=== PATIENT | male | born 1950 | race Caucasian/White ===

== ENCOUNTER 2020-02-07 11:51 | Outpatient (NON) | payer OTHER, SELFPAY ==
[2020-02-08 14:53] LABS: SARS-CoV-2 RNA PCR Positive
== END 2020-02-07 11:52 ==
LOC: ANHCOVIDDT 11:53
PROVIDERS: PCP Family Medicine; Visit Provider Family Medicine
DX: U07.1 COVID-19 (principal)
CPT/HCPCS: 87635; C9803; U0003

== ENCOUNTER 2020-02-12 18:21 | Inpatient (IN) | payer OTHER, MEDICARE, SELFPAY ==
[2020-02-12] VITALS (8 sets, daily range): BP systolic 93–114; BP diastolic 41–55; PULSE 70–92; RESP 16–23; TEMP 36.7–37.2; O2SAT 23–95; BMI 27.7
--- NOTE | ~2020-02-12 | XR_ITS ---
EXAMINATION: XR chest 1V DATE: 02/12/2020 19:36 INDICATION: COVID. Shortness of breath and hypoxia. TECHNIQUE: Upright AP view of the chest was obtained. COMPARISON: Chest radiograph dated 01/27/2016 FINDINGS: Patchy airspace opacities in the bilateral mid to lower lung zones. No pleural effusion or pneumothor ax. Heart size is normal. Median sternotomy wires and mediastinal surgical clips are seen, likely fro m prior coronary artery bypass grafting. Dual lead pacemaker/AICD seen with leads projecting over the expected locations of the right atrium and right ventricle. IMPRESSION: 1. Patchy bilateral lung disease consistent with pneumonia and/or pulmonary edema. Reviewed, dictated and finalized at location . R MACHINE IMPRESSION: 1. Patchy bilateral lung disease consistent with pneumonia and/or pulmonary brooksemiliana narayan
--- NOTE | 2020-02-12 18:36 | ED.SOB ---
HPI - SOB/Dyspnea General Chief Complaint: Shortness of Breath/Dyspnea Stated Complaint: covid+, sob Time Seen by Provider: 02/12/20 18:36 History of Present Illness HPI Narrative: 69 yo male with h/o CABG presents to the ED for SOB. Positive COVID-19 test 5 days ago. Cough, headache, loss of appetite, and increasing SOB. RA saturation 88%. No fever, CP, leg swelling. Related Data Allergies Allergy/AdvReac Type Severity Reaction Status Date / Time No Known Allergies Allergy Unverified 01/30/18 09:25 Review of Systems Review of Systems: All systems reviewed & are unremarkable except as noted in HPI and below Constitutional: Constitutional: Denies fever(s) and Reports weakness Cardiovascular: Cardiovascular: Denies chest pain Respiratory: Respiratory: Reports cough and Reports dyspnea Gastrointestinal: Gastrointestinal: Denies abdominal pain and Denies vomiting Genitourinary: Genitourinary: Denies dysuria Neurologic: Denies confusion PMFSH Past Medical History Medical History (Updated 02/12/20 @ 21:11 by Helder Hogue MD) CAD (coronary artery disease) Surgical History Surgical History (Updated 02/12/20 @ 21:04 by Helder Hogue MD) Hx of CABG Social History Social History (Updated 02/12/20 @ 21:04 by Helder Hogue MD) Smoking status: Never smoker Exam Const: General: no acute distress, alert and ill appearing Nutritional Appearance: well nourished Orientation/consciousness: patient oriented x3 HENMT: Head: normal to inspection Chest: Chest palpation & inspection: normal inspection of the chest Resp: Effort & Inspection: normal respiratory effort Auscultation: rhonchi Cardio: Rate: regular rate Rhythm: regular rhythm GI: GI Palp: Yes Soft to palpation and No Tenderness to palpation present (GI) Skin: General skin exam: normal color Neuro: General: patient oriented x3 and moves all extremities Speech: normal speech Extrem: General: normal to inspection and no edema Course Vital Signs Vital signs: Vital Signs Temperature 36.7 C 02/12/20 18:25 Pulse Rate 73 02/12/20 18:25 Respiratory Rate 20 02/12/20 18:25 Blood Pressure 93/41 L 02/12/20 18:25 Pulse Oximetry 88 L 02/12/20 18:25 Temperature 36.7 C 02/12/20 18:25 Pulse Rate 85 02/12/20 20:13 Respiratory Rate 23 H 02/12/20 20:13 Blood Pressure 114/52 L 02/12/20 20:13 Pulse Oximetry 92 02/12/20 20:15 MDM - SOB/Dyspnea MDM Narrative Medical decision making narrative: New oxygen requirement. Diffuse infiltrates on x-ray. Positive COVID test. He will need t be admitted for respiratory failure. Medical Records Attestation: I reviewed the patient's medical records. Lab Data Attestation: I reviewed the patient's lab results. Result diagrams: 02/12/20 19:21 02/12/20 19:21 Labs: Lab Results 02/12/20 02/12/20 02/12/20 Range/Units 19:21 19:21 19:21 WBC 10.7 H (4.5-10.0) K/mm3 RBC 3.60 L (4.6-6.20) M/mm3 Hgb 11.6 L (14.0-18.0) g/dL Hct 32.7 L (42.0-52.0) % MCV 90.8 (80-100) fl MCH 32.2 (26-34) pg MCHC 35.5 (32-36) g/dl RDW 13.0 (11.5-14.5) % Plt Count 236 (150-375) k/mm3 MPV 10.2 (7.4-10.4) fl Immature Gran % (Auto) 0.7 H (0-0.5) % Neut % (Auto) 84.4 H (45.5-73.1) % Lymph % (Auto) 8.1 L (18.3-44.2) % Hinds % (Auto) 6.7 (2.6-8.5) % Eos % (Auto) 0.0 (0-4.4) % Baso % (Auto) 0.1 L (0.2-1.2) % Lymph # (Auto) 0.87 L (0.9-3.2) K/mm3 Hinds # (Auto) 0.7 H (0.1-0.6) K/mm3 Eos # (Auto) 0.0 (0-0.3) K/mm3 Baso # (Auto) 0.0 (0.0-0.1) K/mm3 Abs Immat Gran (auto) 0.08 H (0.00-0.031) K/mm3 Absolute Neuts (auto) 9.1 H (1.3-6.7) K/mm3 Absolute Nucleated RBC 0.0 (0.0-0.012) K/mm3 Nucleated RBC % 0.0 (0.0-0.2) % Sodium 130 L (137-145) mmol/L Potassium 3.4 (3.4-5.0) mmol/L Chloride 92 L (98-107) mmol/L Carbon Dioxide 26 (22-30)
--- NOTE | 2020-02-12 18:48 | ECG_ITS ---
Measurements Intervals Tensed Rate: 74 P: 55 NV: 202 QRS: 20 QRSD: 125 T: 15 QT: 414 QTc: 462 Interpretive Statements SINUS RHYTHM INTRAVENTRICULAR CONDUCTION DELAY DELAYED PRECORDIAL R/S TRANSITION NONSPECIFIC T-WAVE ABNORMALITY- ANT/INF LEADS BASELINE ARTIFACT- I, II, III, AVR, AVL, AVF BORDERLINE ECG Electronically Signed On 02-13-2020 15:38:58 DELIVERY SALES WORK[employer] by Jd Chaudhary D.O.
[2020-02-12] MEDS: ALBUTEROL SULFATE (*SP) AEROSOL 1 PUFF 6 PUFF INHALATION (19:05)
--- NOTE | 2020-02-12 19:05 | PC.NURSE ---
REPORT TO IRIS BENÍTEZ AT THIS TIME SHE HAS ASSUMED PT CARE.
[2020-02-12 19:29] LABS: Basophils Percent Auto 0.1 % (0.2-1.2); Hematocrit 32.7 % (42.0-52.0); Hemoglobin 11.6 g/dL (14.0-18.0); Immature Granulocyte Absolute 0.08 K/mm3 (0.00-0.031); Immature Granulocyte Percent A 0.7 % (0-0.5); Lymphocytes Absolute Auto 0.87 K/mm3 (0.9-3.2); Lymphocytes Percent Auto 8.1 % (18.3-44.2); Mean Corpuscular HGB Conc 35.5 g/dl (32-36); Mean Corpuscular Hemoglobin 32.2 pg (26-34); Mean Corpuscular Volume 90.8 fl (80-100); Mean Platelet Volume 10.2 fl (7.4-10.4); Monocytes Absolute Auto 0.7 K/mm3 (0.1-0.6); Monocytes Percent Auto 6.7 % (2.6-8.5); Neutrophils Absolute Auto 9.1 K/mm3 (1.3-6.7); Neutrophils Percent Auto 84.4 % (45.5-73.1); Platelet Count Result 236 k/mm3 (150-375); White Blood Count 10.7 K/mm3 (4.5-10.0)
[2020-02-12 19:41] LABS: Anion Gap 12 mmol/L (8-16); Blood Urea Nitrogen 38 mg/dL (9-20); Calcium 8.4 mg/dL (8.4-10.2); Carbon Dioxide 26 mmol/L (22-30); Chloride 92 mmol/L (98-107); Estimated CRCL calculation 38 ml/min; Estimated Glomerular Filt Rate 38; Glucose 140 mg/dL (75-110); Potassium 3.4 mmol/L (3.4-5.0); Sodium 130 mmol/L (137-145)
[2020-02-12 20:42] LABS: Alanine Aminotransferase 52 U/L (4-50); Albumin Level 3.5 g/dL (3.5-5.1); Alkaline Phosphatase 159 U/L (38-126); Aspartate Amino Transferase 61 U/L (17-59); Bilirubin,Total 0.8 mg/dL (0.2-1.3)
--- NOTE | 2020-02-12 22:21 | PC.NURSE ---
Update patients on admission status.
--- NOTE | 2020-02-12 23:05 | PC.NURSE ---
This patient, Warren Don, was admitted to 3 [facility] Surg Room 331-02. Patient/family oriented to hospital policies and general routines including ID bracelet, bed and alarms, visiting hours, pain management, procedures, bathroom and other care routines, personal items, smoking policy, room service/diet, and visiting hours. Information on how to activate the Rapid Response Team has been discussed. Patient/Family are encouraged to report perceived risks to care and to ask questions if they do not understand what they are told or what they should do.
[2020-02-13] VITALS (10 sets, daily range): BP systolic 99–114; BP diastolic 51–61; PULSE 70–94; RESP 16–18; TEMP 35.8–36.4; O2SAT 91–99
[2020-02-13] MEDS: LACTATED RINGERS 1,000 ML 75 ML IV CONT (00:15)
[2020-02-13 06:54] LABS: Hematocrit 31.8 % (42.0-52.0); Hemoglobin 11.2 g/dL (14.0-18.0); Immature Granulocyte Absolute 0.04 K/mm3 (0.00-0.031); Immature Granulocyte Percent A 0.7 % (0-0.5); Lymphocytes Absolute Auto 0.24 K/mm3 (0.9-3.2); Mean Corpuscular HGB Conc 35.2 g/dl (32-36); Mean Corpuscular Hemoglobin 32.1 pg (26-34); Mean Corpuscular Volume 91.1 fl (80-100); Mean Platelet Volume 9.9 fl (7.4-10.4); Monocytes Absolute Auto 0.3 K/mm3 (0.1-0.6); Monocytes Percent Auto 4.7 % (2.6-8.5); Neutrophils Absolute Auto 5.4 K/mm3 (1.3-6.7); Neutrophils Percent Auto 90.6 % (45.5-73.1); Platelet Count Result 219 k/mm3 (150-375); Red Blood Count 3.49 M/mm3 (4.6-6.20)
[2020-02-13 07:22] LABS: Potassium 3.5 mmol/L (3.4-5.0)
[2020-02-13 07:44] LABS: Anion Gap 9 mmol/L (8-16); Blood Urea Nitrogen 38 mg/dL (9-20); Calcium 8.4 mg/dL (8.4-10.2); Carbon Dioxide 28 mmol/L (22-30); Chloride 93 mmol/L (98-107); Estimated CRCL calculation 41 ml/min; Estimated Glomerular Filt Rate 40; Glucose 184 mg/dL (75-110); Sodium 130 mmol/L (137-145)
[2020-02-13] MEDS: ASPIRIN 81 MG CHEWABLE TABLET PO (09:18)
[2020-02-13] MEDS: AMIODARONE HCL 200 MG TABLET BY MOUTH (09:19)
[2020-02-13] MEDS: METOPROLOL TARTRATE 25 MG TABLET PO ×2 (09:20→21:07)
[2020-02-13] MEDS: guaiFENesin 12 HR 600 MG TABCR PO ×2 (09:20→21:07)
[2020-02-13] MEDS: DEXAMETHASONE SOD PHOS INJ 4 MG/ML VIAL 6 MG IV PUSH (09:20)
[2020-02-13] MEDS: LORATADINE 10 MG TABLET PO (09:20)
[2020-02-13] MEDS: ASCORBIC ACID 500 MG TABLET 1000 MG PO (09:20)
[2020-02-13] MEDS: APIXABAN 5 MG TABLET PO ×2 (09:23→17:19)
--- NOTE | 2020-02-13 09:36 | PM.IMHP ---
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 He states he was feeling ill on 02/05 and got tested and was found positive on 02/06. His initial symptoms were dizziness, feeling clammy , chills, general malaise, general weakness. He had SOB with exertion. He also notes an occasional cough with slight chest discomfort with his cough. Occasional non-bloody sputum production. He denies having any sick contacts at home or known COVID exposure. He denies loss of taste or smell. He has noted lack of appetite with poor PO intake. He has occasional nausea with eating and vomited nonbloody bilious emesis occasionally. Earlier this week, his PCP instructed him to purchase a pulse oximeter to check his O2 saturations; yesterday he was noting saturations in low 80s and was instructed to proceed to the ED for further evaluation. While in the ED, he was noted to be hypoxic on RA; he was placed on 2L O2 with adequate O2 saturations. CXR showed patchy bilateral lung disease consistent with pneumonia and/or pulmonary edema. He had mild Leukocytosis. He was started on Decadron while in the ED. No other complaints at the moment. Denies current subjective f/c/s, current dizziness, lightheadedness, cp/palpitations, current sob/cough, current n/v/d/c, abd pain, changes in BMs, dysuria, hematuria, cloudy urine, calf pain/swelling. Review of Systems Review of Systems: All systems reviewed & are unremarkable except as noted in HPI and below PMFSH Past Medical History Medical History (Updated 02/13/20 @ 10:08 by Vincent Davis PA-C) A-fib CAD (coronary artery disease) Chronic anticoagulation Hypercholesteremia Hypertension Myocardial infarction Surgical History Surgical History (Updated 02/13/20 @ 09:53 by Vincent Davis PA-C) History of appendectomy History of back surgery lumbar disc repair History of tonsillectomy Hx of CABG Family History Family History (Updated 02/12/20 @ 23:31 by Althea López RN) Father Heart disease Social History Social History (Updated 02/13/20 @ 09:59 by Vincent Davis PA-C) Social History: Patient states he lives at home with his , Nadege, and his mother in law. He is a former 30 pack-year smoker quitting several years ago. His PCP is Dr. Ware. He wishes to be a Full Code. He lists his as his surrogate MDM Smoking status: Former smoker Alcohol intake: never Drinks per week: 2 Substance use: never Gender identity (if verbalized by the patient): Male Spiritual care concerns: No Meds Home Medications and Allergies Home Medications Medication Instructions Recorded Confirmed Type Allergy Relief (loratadine) 10 mg PO DAILY 02/12/20 02/12/20 History amiodarone 200 mg PO DAILY 02/12/20 02/12/20 History apixaban [Eliquis] 5 mg PO BID 02/12/20 02/12/20 History ascorbic acid (vitamin C) 1,000 mg PO DAILY 02/12/20 02/12/20 History aspirin 81 mg PO DAILY 02/12/20 02/12/20 History atorvastatin 80 mg PO DAILY 02/12/20 02/12/20 History hydrochlorothiazide 25 mg PO DAILY 02/12/20 02/12/20 History losartan 100 mg PO DAILY 02/12/20 02/12/20 History metoprolol tartrate 25 mg PO BID 02/12/20 02/12/20 History Allergies Allergy/AdvReac Type Severity Reaction Status Date / Time No Known Allergies Allergy Unverified 02/12/20 23:25 Vital Signs Vital Signs - 24 hr 02/12/20 18:25 02/12/20 19:22 02/12/20 19:
[2020-02-13] MEDS: ALBUTEROL SULFATE (*SP) AEROSOL 1 PUFF 2 PUFF INHALATION ×3 (10:17→21:29)
[2020-02-13] MEDS: REMDESIVIR 200 MG/NS 250 ML 200 MG/250 ML BAG 250 MG IVPB (11:31)
--- NOTE | 2020-02-13 17:50 | PCRCNOTE ---
Window of time for administration has passed. See next scheduled administration.
[2020-02-14] VITALS (15 sets, daily range): BP systolic 96–127; BP diastolic 46–76; PULSE 66–76; RESP 16–18; TEMP 36.1–36.4; O2SAT 92–98
[2020-02-14 06:52] LABS: Basophils Percent Auto 0.2 % (0.2-1.2); Hematocrit 30.8 % (42.0-52.0); Hemoglobin 10.9 g/dL (14.0-18.0); Immature Granulocyte Absolute 0.11 K/mm3 (0.00-0.031); Immature Granulocyte Percent A 0.9 % (0-0.5); Lymphocytes Absolute Auto 0.46 K/mm3 (0.9-3.2); Lymphocytes Percent Auto 3.8 % (18.3-44.2); Mean Corpuscular HGB Conc 35.4 g/dl (32-36); Mean Corpuscular Hemoglobin 31.6 pg (26-34); Mean Corpuscular Volume 89.3 fl (80-100); Mean Platelet Volume 9.9 fl (7.4-10.4); Monocytes Absolute Auto 0.9 K/mm3 (0.1-0.6); Monocytes Percent Auto 7.8 % (2.6-8.5); Neutrophils Absolute Auto 10.4 K/mm3 (1.3-6.7); Neutrophils Percent Auto 87.3 % (45.5-73.1); Platelet Count Result 267 k/mm3 (150-375); Red Blood Count 3.45 M/mm3 (4.6-6.20); Red Cell Distribution Width 12.8 % (11.5-14.5)
[2020-02-14 07:18] LABS: Alanine Aminotransferase 53 U/L (4-50); Albumin Level 3.1 g/dL (3.5-5.1); Alkaline Phosphatase 133 U/L (38-126); Anion Gap 6 mmol/L (8-16); Aspartate Amino Transferase 52 U/L (17-59); Bilirubin,Total 0.5 mg/dL (0.2-1.3); Blood Urea Nitrogen 38 mg/dL (9-20); Calcium 8.6 mg/dL (8.4-10.2); Carbon Dioxide 32 mmol/L (22-30); Chloride 96 mmol/L (98-107); Estimated CRCL calculation 53 ml/min; Estimated Glomerular Filt Rate 55; Glucose 148 mg/dL (75-110); Lactate Dehydrogenase 572 U/L (313-618); Magnesium 2.2 mg/dL (1.6-2.3); Potassium 3.8 mmol/L (3.4-5.0); Sodium 134 mmol/L (137-145)
[2020-02-14 07:32] LABS: CRP 20.3 mg/dL (<1.0)
[2020-02-14] MEDS: ALBUTEROL SULFATE (*SP) AEROSOL 1 PUFF 2 PUFF INHALATION ×4 (08:01→21:47)
[2020-02-14] MEDS: REMDESIVIR 100 MG/NS 250 ML 100 MG/250 ML BAG 250 MG IVPB (08:31)
[2020-02-14] MEDS: ASPIRIN 81 MG CHEWABLE TABLET PO (08:31)
[2020-02-14] MEDS: METOPROLOL TARTRATE 25 MG TABLET PO ×2 (08:32→20:13)
[2020-02-14] MEDS: ASCORBIC ACID 500 MG TABLET 1000 MG PO (08:32)
[2020-02-14] MEDS: APIXABAN 5 MG TABLET PO ×2 (08:32→17:18)
[2020-02-14] MEDS: guaiFENesin 12 HR 600 MG TABCR PO ×2 (08:32→20:13)
[2020-02-14] MEDS: DEXAMETHASONE SOD PHOS INJ 4 MG/ML VIAL 6 MG IV PUSH (08:32)
[2020-02-14] MEDS: LORATADINE 10 MG TABLET PO (08:32)
[2020-02-14] MEDS: AMIODARONE HCL 200 MG TABLET BY MOUTH (08:33)
--- NOTE | 2020-02-14 12:55 | P.PNIM_ITS ---
Progress Note: A&P Assessment and Plan (1) Acute respiratory failure with hypoxia: Code(s): J96.01 - Acute respiratory failure with hypoxia Status: Acute Assessment and Plan: Likely secondary to COVID pneumonia. Requiring 1 L O2 NC; improvement from yesterday * Supplemental O2; wean as tolerated * Continue supportive treatment for COVID; Tylenol, Mucinex, albuterol PRN * Continue Decadron and Remdesivir for COVID * Monitor (2) Pneumonia due to COVID-19 virus: Code(s): U07.1 - COVID-19; J12.89 - Other viral pneumonia Status: Acute Assessment and Plan: CXR shows evidence of pneumonia; likely secondary to COVID-19; tested positive on 02/06. Patient feels much better today; appears to have improved clinically. Mild leukocytosis today likely due to viral infection and daily steroids * Decadron initiated in ED on 02/11; continue (day 3) * Remdesivir initiated 02/12; continue (day 2/5) * Wean O2 as tolerated * Continue supportive care with Tylenol, mucinex, albuterol PRN; IS * Monitor respiratory status closely * Monitor labs (3) CAD (coronary artery disease): Code(s): I25.10 - Atherosclerotic heart disease of [place] coronary artery without angina pectoris Status: Inactive Assessment and Plan: No chest pain/palpitations. Follows Dr. Worthington and has appointment in 02/2020 * Continue home medications * Monitor (4) Hypertension: Code(s): I10 - Essential (primary) hypertension Status: Acute Assessment and Plan: BP a bit soft; most recent 111/58 * Continue home metoprolol * HCTZ and Losartan held for now; resume when BP improved (5) A-fib: Code(s): I48.91 - Unspecified atrial fibrillation Status: Acute Assessment and Plan: Patient on amiodarone and Eliquis, as well as metoprolol. Rate appears to be well controlled * Will continue amio, Eliquis and metoprolol for now * Monitor (6) Chronic anticoagulation: Code(s): Z79.01 - intermodal owner operator truck driver (current) use of anticoagulants Status: Acute Assessment and Plan: For A. fib, assumed stroke ppx. No signs of acute blood loss * Continue Eliquis (7) Hypercholesteremia: Code(s): E78.00 - Pure hypercholesterolemia, unspecified Status: Acute Assessment and Plan: * Will hold atorvastatin for now (8) Kidney failure: Code(s): N19 - Unspecified kidney failure Status: Acute Assessment and Plan: Labs obtained from PCP from 11/2019 show Cr of 1.45; assumed baseline. Cr today improved to 1.30; possible acute on chronic kidney injury secondary to poor PO intake prior to arrival. * Monitor kidney function daily * Will refrain from IV fluids as to not fluid overload; encouraged PO intake. 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 Patient states he feels a lot better today. Less SOB, able to walk to bathroom okay. Weaned to 1L O2 this morning. He has
--- NOTE | 2020-02-14 12:55 | PM.IMPN ---
Progress Note: A&P Assessment and Plan (1) Acute respiratory failure with hypoxia: Code(s): J96.01 - Acute respiratory failure with hypoxia Status: Acute Assessment and Plan: Likely secondary to COVID pneumonia. Requiring 1 L O2 NC; improvement from yesterday Supplemental O2; wean as tolerated Continue supportive treatment for COVID; Tylenol, Mucinex, albuterol PRN Continue Decadron and Remdesivir for COVID Monitor (2) Pneumonia due to COVID-19 virus: Code(s): U07.1 - COVID-19; J12.89 - Other viral pneumonia Status: Acute Assessment and Plan: CXR shows evidence of pneumonia; likely secondary to COVID-19; tested positive on 02/06. Patient feels much better today; appears to have improved clinically. Mild leukocytosis today likely due to viral infection and daily steroids Decadron initiated in ED on 02/11; continue (day 3) Remdesivir initiated 02/12; continue (day 2/5) Wean O2 as tolerated Continue supportive care with Tylenol, mucinex, albuterol PRN; IS Monitor respiratory status closely Monitor labs (3) CAD (coronary artery disease): Code(s): I25.10 - Atherosclerotic heart disease of [place] coronary artery without angina pectoris Status: Inactive Assessment and Plan: No chest pain/palpitations. Follows Dr. Worthington and has appointment in 02/2020 Continue home medications Monitor (4) Hypertension: Code(s): I10 - Essential (primary) hypertension Status: Acute Assessment and Plan: BP a bit soft; most recent 111/58 Continue home metoprolol HCTZ and Losartan held for now; resume when BP improved (5) A-fib: Code(s): I48.91 - Unspecified atrial fibrillation Status: Acute Assessment and Plan: Patient on amiodarone and Eliquis, as well as metoprolol. Rate appears to be well controlled Will continue amio, Eliquis and metoprolol for now Monitor (6) Chronic anticoagulation: Code(s): Z79.01 - laborer marine terminal (current) use of anticoagulants Status: Acute Assessment and Plan: For A. fib, assumed stroke ppx. No signs of acute blood loss Continue Eliquis (7) Hypercholesteremia: Code(s): E78.00 - Pure hypercholesterolemia, unspecified Status: Acute Assessment and Plan: Will hold atorvastatin for now (8) Kidney failure: Code(s): N19 - Unspecified kidney failure Status: Acute Assessment and Plan: Labs obtained from PCP from 11/2019 show Cr of 1.45; assumed baseline. Cr today improved to 1.30; possible acute on chronic kidney injury secondary to poor PO intake prior to arrival. Monitor kidney function daily Will refrain from IV fluids as to not fluid overload; encouraged PO intake. Consider resuming if not having adequate PO intake and having worsening renal function Subjective Date/time seen: 02/14/20 12:55 Interval history: Patient is a 69 yo M with history of past [place] s/p CABG, A. fib (on assisted a/c with Eliquis), hypertension, hypercholesterolemia, and questionable kidney disease who is seen in follow up for COVID pneumonia acute respiratory failure with hypoxia due to same. Patient states he feels a lot better today. Less SOB, able to walk to bathroom okay. Weaned to 1L O2 this morning. He has a dry cough, but this has improved. His weakness has significantly improved. No other complaints. Denies current f/c/s, myalgias/arthralgias, headaches, dizziness, lightheadedness, cp/palpitations, n/v/d/c, abd pain, changes in BMs, dysuria, hematuria, cloudy urine, calf pain/swelling. Review of Systems Review of Systems: All systems reviewed & are unremarkable except as noted in HPI and b
[2020-02-15] VITALS (9 sets, daily range): BP systolic 110–135; BP diastolic 55–68; PULSE 69–76; RESP 16–20; TEMP 36.3–36.7; O2SAT 92–95
[2020-02-15 06:46] LABS: Basophils Percent Auto 0.1 % (0.2-1.2); Hematocrit 29.2 % (42.0-52.0); Hemoglobin 10.3 g/dL (14.0-18.0); Immature Granulocyte Absolute 0.16 K/mm3 (0.00-0.031); Immature Granulocyte Percent A 1.5 % (0-0.5); Lymphocytes Absolute Auto 0.54 K/mm3 (0.9-3.2); Mean Corpuscular HGB Conc 35.3 g/dl (32-36); Mean Corpuscular Hemoglobin 31.8 pg (26-34); Mean Corpuscular Volume 90.1 fl (80-100); Mean Platelet Volume 9.9 fl (7.4-10.4); Monocytes Absolute Auto 1.1 K/mm3 (0.1-0.6); Monocytes Percent Auto 10.3 % (2.6-8.5); Neutrophils Absolute Auto 9.1 K/mm3 (1.3-6.7); Neutrophils Percent Auto 83.1 % (45.5-73.1); Platelet Count Result 271 k/mm3 (150-375); Red Blood Count 3.24 M/mm3 (4.6-6.20); White Blood Count 10.9 K/mm3 (4.5-10.0)
[2020-02-15 07:06] LABS: Alanine Aminotransferase 64 U/L (4-50); Albumin Level 2.9 g/dL (3.5-5.1); Alkaline Phosphatase 123 U/L (38-126); Anion Gap 8 mmol/L (8-16); Aspartate Amino Transferase 59 U/L (17-59); Bilirubin,Total 0.4 mg/dL (0.2-1.3); Blood Urea Nitrogen 36 mg/dL (9-20); Calcium 8.4 mg/dL (8.4-10.2); Carbon Dioxide 29 mmol/L (22-30); Chloride 98 mmol/L (98-107); Estimated CRCL calculation 62 ml/min; Estimated Glomerular Filt Rate > 60; Glucose 121 mg/dL (75-110); Potassium 3.7 mmol/L (3.4-5.0); Sodium 135 mmol/L (137-145)
[2020-02-15] MEDS: ASPIRIN 81 MG CHEWABLE TABLET PO (08:33)
[2020-02-15] MEDS: ASCORBIC ACID 500 MG TABLET 1000 MG PO (08:35)
[2020-02-15] MEDS: AMIODARONE HCL 200 MG TABLET BY MOUTH (08:35)
[2020-02-15] MEDS: APIXABAN 5 MG TABLET PO ×2 (08:35→16:08)
[2020-02-15] MEDS: LORATADINE 10 MG TABLET PO (08:36)
[2020-02-15] MEDS: METOPROLOL TARTRATE 25 MG TABLET PO ×2 (08:36→20:08)
[2020-02-15] MEDS: guaiFENesin 12 HR 600 MG TABCR PO ×2 (08:36→20:08)
[2020-02-15] MEDS: DEXAMETHASONE SOD PHOS INJ 4 MG/ML VIAL 6 MG IV PUSH (08:37)
[2020-02-15] MEDS: REMDESIVIR 100 MG/NS 250 ML 100 MG/250 ML BAG 250 MG IVPB (08:41)
[2020-02-15] MEDS: ALBUTEROL SULFATE (*SP) AEROSOL 1 PUFF 2 PUFF INHALATION ×3 (08:55→16:14)
--- NOTE | 2020-02-15 10:48 | P.PNIM_ITS ---
Progress Note: A&P Assessment and Plan (1) Acute respiratory failure with hypoxia: Code(s): J96.01 - Acute respiratory failure with hypoxia Status: Acute Assessment and Plan: Likely secondary to COVID pneumonia. Requiring 1 L O2 NC; stable * Supplemental O2; wean as tolerated * Continue supportive treatment for COVID; Tylenol, Mucinex, albuterol PRN * Continue Decadron and Remdesivir for COVID * Monitor (2) Pneumonia due to COVID-19 virus: Code(s): U07.1 - COVID-19; J12.89 - Other viral pneumonia Status: Acute Assessment and Plan: CXR shows evidence of pneumonia; likely secondary to COVID-19; tested positive on 02/06. Patient feels well today; appears to have improved clinically. Mild leukocytosis again today likely due to viral infection and daily steroids * Decadron initiated in ED on 02/11; continue (day 4) * Remdesivir initiated 02/12; continue (day 3/5) * Wean O2 as tolerated * Continue supportive care with Tylenol, mucinex, albuterol PRN; IS * Monitor respiratory status closely * Monitor labs (3) CAD (coronary artery disease): Code(s): I25.10 - Atherosclerotic heart disease of [place] coronary artery without angina pectoris Status: Inactive Assessment and Plan: No chest pain/palpitations. Follows Dr. Worthington and has appointment in 02/2020 * Continue home medications * Monitor (4) Hypertension: Code(s): I10 - Essential (primary) hypertension Status: Acute Assessment and Plan: BP a bit soft; most recent 110/55 * Continue home metoprolol * HCTZ and Losartan held for now; possibly resume losartan tomorrow if BP improved and kidney function stable (5) A-fib: Code(s): I48.91 - Unspecified atrial fibrillation Status: Acute Assessment and Plan: Patient on amiodarone and Eliquis, as well as metoprolol. 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 fib, assumed stroke ppx. No signs of acute blood loss * Continue Eliquis (7) Hypercholesteremia: Code(s): E78.00 - Pure hypercholesterolemia, unspecified Status: Acute Assessment and Plan: * Will hold atorvastatin for now (8) Kidney failure: Code(s): N19 - Unspecified kidney failure Status: Acute Assessment and Plan: Labs obtained from PCP from 11/2019 show Cr of 1.45; assumed baseline. Cr today improved to 1.10; possible acute kidney injury secondary to poor PO intake prior to arrival, although. * Monitor kidney function daily * Will refrain from IV fluids as to not fluid overload; encouraged PO intake. Consider resuming if not having adequate PO intake and having worsening renal function Subjective Date/time seen: 02/15/20 10:48 Interval history: Patient is a 69 yo M with history of past [place] s/p CABG, A. fib (on snf a/c with Eliquis), hypertension, hypercholesterolemia, and questionable kidney disease who is seen in follow up for COVID pneumonia acute respiratory failure with hypoxia due to same. Patient states he feels better again today. Less SOB, able to walk around the room easily. His
--- NOTE | 2020-02-15 10:48 | PM.IMPN ---
Progress Note: A&P Assessment and Plan (1) Acute respiratory failure with hypoxia: Code(s): J96.01 - Acute respiratory failure with hypoxia Status: Acute Assessment and Plan: Likely secondary to COVID pneumonia. Requiring 1 L O2 NC; stable Supplemental O2; wean as tolerated Continue supportive treatment for COVID; Tylenol, Mucinex, albuterol PRN Continue Decadron and Remdesivir for COVID Monitor (2) Pneumonia due to COVID-19 virus: Code(s): U07.1 - COVID-19; J12.89 - Other viral pneumonia Status: Acute Assessment and Plan: CXR shows evidence of pneumonia; likely secondary to COVID-19; tested positive on 02/06. Patient feels well today; appears to have improved clinically. Mild leukocytosis again today likely due to viral infection and daily steroids Decadron initiated in ED on 02/11; continue (day 4) Remdesivir initiated 02/12; continue (day 3/5) Wean O2 as tolerated Continue supportive care with Tylenol, mucinex, albuterol PRN; IS Monitor respiratory status closely Monitor labs (3) CAD (coronary artery disease): Code(s): I25.10 - Atherosclerotic heart disease of [place] coronary artery without angina pectoris Status: Inactive Assessment and Plan: No chest pain/palpitations. Follows Dr. Worthington and has appointment in 02/2020 Continue home medications Monitor (4) Hypertension: Code(s): I10 - Essential (primary) hypertension Status: Acute Assessment and Plan: BP a bit soft; most recent 110/55 Continue home metoprolol HCTZ and Losartan held for now; possibly resume losartan tomorrow if BP improved and kidney function stable (5) A-fib: Code(s): I48.91 - Unspecified atrial fibrillation Status: Acute Assessment and Plan: Patient on amiodarone and Eliquis, as well as metoprolol. 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 fib, assumed stroke ppx. No signs of acute blood loss Continue Eliquis (7) Hypercholesteremia: Code(s): E78.00 - Pure hypercholesterolemia, unspecified Status: Acute Assessment and Plan: Will hold atorvastatin for now (8) Kidney failure: Code(s): N19 - Unspecified kidney failure Status: Acute Assessment and Plan: Labs obtained from PCP from 11/2019 show Cr of 1.45; assumed baseline. Cr today improved to 1.10; possible acute kidney injury secondary to poor PO intake prior to arrival, although. Monitor kidney function daily Will refrain from IV fluids as to not fluid overload; encouraged PO intake. Consider resuming if not having adequate PO intake and having worsening renal function Subjective Date/time seen: 02/15/20 10:48 Interval history: Patient is a 69 yo M with history of past [place] s/p CABG, A. fib (on group home a/c with Eliquis), hypertension, hypercholesterolemia, and questionable kidney disease who is seen in follow up for COVID pneumonia acute respiratory failure with hypoxia due to same. Patient states he feels better again today. Less SOB, able to walk around the room easily. His dry cough was worse overnight, but seems to be better this morning. Notes that he still is on 1L O2 this morning. No other complaints. Tolerating diet. Feels less weak. Denies current f/c/s, myalgias/arthralgias, headaches, dizziness, lightheadedness, cp/palpitations, n/v/d/c, abd pain, changes in BMs, dysuria, hematuria, cloudy urine, calf pain/swelling. Review of Systems Review of Syste
[2020-02-16] VITALS (10 sets, daily range): BP systolic 120–153; BP diastolic 57–77; PULSE 70; RESP 14–20; TEMP 36.1–36.4; O2SAT 89–97
[2020-02-16 07:10] LABS: Basophils Percent Auto 0.2 % (0.2-1.2); Hematocrit 30.6 % (42.0-52.0); Hemoglobin 10.6 g/dL (14.0-18.0); Immature Granulocyte Percent A 4.7 % (0-0.5); Lymphocytes Absolute Auto 0.64 K/mm3 (0.9-3.2); Lymphocytes Percent Auto 7.5 % (18.3-44.2); Mean Corpuscular HGB Conc 34.6 g/dl (32-36); Mean Corpuscular Hemoglobin 31.8 pg (26-34); Mean Corpuscular Volume 91.9 fl (80-100); Mean Platelet Volume 10.2 fl (7.4-10.4); Monocytes Absolute Auto 1.1 K/mm3 (0.1-0.6); Monocytes Percent Auto 12.6 % (2.6-8.5); Neutrophils Absolute Auto 6.4 K/mm3 (1.3-6.7); Platelet Count Result 281 k/mm3 (150-375); Red Blood Count 3.33 M/mm3 (4.6-6.20); Red Cell Distribution Width 13.2 % (11.5-14.5); White Blood Count 8.5 K/mm3 (4.5-10.0)
[2020-02-16 07:29] LABS: Alanine Aminotransferase 79 U/L (4-50); Albumin Level 2.9 g/dL (3.5-5.1); Alkaline Phosphatase 127 U/L (38-126); Anion Gap 7 mmol/L (8-16); Aspartate Amino Transferase 53 U/L (17-59); Bilirubin,Total 0.5 mg/dL (0.2-1.3); Blood Urea Nitrogen 26 mg/dL (9-20); CRP 7.9 mg/dL (<1.0); Calcium 8.3 mg/dL (8.4-10.2); Carbon Dioxide 31 mmol/L (22-30); Chloride 96 mmol/L (98-107); Estimated CRCL calculation 74 ml/min; Estimated Glomerular Filt Rate > 60; Glucose 99 mg/dL (75-110); Lactate Dehydrogenase 621 U/L (313-618); Magnesium 1.9 mg/dL (1.6-2.3); Potassium 3.9 mmol/L (3.4-5.0); Sodium 134 mmol/L (137-145)
[2020-02-16] MEDS: REMDESIVIR 100 MG/NS 250 ML 100 MG/250 ML BAG 250 MG IVPB (08:50)
[2020-02-16] MEDS: ASPIRIN 81 MG CHEWABLE TABLET PO (08:53)
[2020-02-16] MEDS: AMIODARONE HCL 200 MG TABLET BY MOUTH (08:54)
[2020-02-16] MEDS: APIXABAN 5 MG TABLET PO ×2 (08:55→17:10)
[2020-02-16] MEDS: ASCORBIC ACID 500 MG TABLET 1000 MG PO (08:55)
[2020-02-16] MEDS: DEXAMETHASONE SOD PHOS INJ 4 MG/ML VIAL 6 MG IV PUSH (08:55)
[2020-02-16] MEDS: LORATADINE 10 MG TABLET PO (08:56)
[2020-02-16] MEDS: guaiFENesin 12 HR 600 MG TABCR PO ×2 (08:56→20:29)
[2020-02-16] MEDS: METOPROLOL TARTRATE 25 MG TABLET PO ×2 (08:58→20:29)
[2020-02-16] MEDS: ALBUTEROL SULFATE (*SP) AEROSOL 1 PUFF 2 PUFF INHALATION ×3 (09:05→21:10)
[2020-02-16] MEDS: LOSARTAN POTASSIUM 100 MG TABLET PO (09:42)
--- NOTE | 2020-02-16 14:08 | P.PNIM_ITS ---
Progress Note: A&P Assessment and Plan (1) Acute respiratory failure with hypoxia: Code(s): J96.01 - Acute respiratory failure with hypoxia Status: Acute Assessment and Plan: Likely secondary to COVID pneumonia. Now on RA and tolerating this fine today. * Supplemental O2 PRN * Continue supportive treatment for COVID; Tylenol, Mucinex, albuterol PRN * Continue Decadron and Remdesivir for COVID * Monitor (2) Pneumonia due to COVID-19 virus: Code(s): U07.1 - COVID-19; J12.89 - Other viral pneumonia Status: Acute Assessment and Plan: CXR shows evidence of pneumonia; likely secondary to COVID-19; tested positive on 02/06. Patient feels well today; appears to have improved clinically. Leukocytosis resolved * Decadron initiated in ED on 02/11; continue (day 5) * Remdesivir initiated 02/12; continue (day 4/5) * Continue supportive care with Tylenol, mucinex, albuterol PRN; IS * Monitor respiratory status closely * Monitor labs * If clinically stable/improved tomorrow, will likely plan for discharge tomorrow and home O2 eval prior to discharge (3) CAD (coronary artery disease): Code(s): I25.10 - Atherosclerotic heart disease of [place] coronary artery without angina pectoris Status: Inactive Assessment and Plan: No chest pain/palpitations. Follows Dr. Worthington and has appointment in 02/2020 * Continue home medications * Monitor (4) Hypertension: Code(s): I10 - Essential (primary) hypertension Status: Acute Assessment and Plan: BP improved to 120s sys this afternoon * Continue home metoprolol * Resume Losartan today * HCTZ held for now; possibly resume tomorrow if BP improved and kidney function stable (5) A-fib: Code(s): I48.91 - Unspecified atrial fibrillation Status: Acute Assessment and Plan: Patient on amiodarone and Eliquis, as well as metoprolol. Rate appears to be well controlled * Will continue amio, Eliquis and metoprolol for now * Monitor (6) Chronic anticoagulation: Code(s): Z79.01 - truck terminal manager (current) use of anticoagulants Status: Acute Assessment and Plan: For A. fib, assumed stroke ppx. No signs of acute blood loss * Continue Eliquis (7) Hypercholesteremia: Code(s): E78.00 - Pure hypercholesterolemia, unspecified Status: Acute Assessment and Plan: * Will hold atorvastatin for now (8) Kidney failure: Code(s): N19 - Unspecified kidney failure Status: Acute Assessment and Plan: Labs obtained from PCP from 11/2019 show Cr of 1.45; assumed baseline. Cr today improved to 0.90; possible acute kidney injury secondary to poor PO intake prior to arrival, although. * Monitor kidney function daily * Will refrain from IV fluids as to not fluid overload; encouraged PO intake. Consider resuming if not having adequate PO intake and having worsening renal function Subjective Date/time seen: 02/16/20 14:08 Interval history: Patient is a 69 yo M with history of past [place] s/p CABG, A. fib (on buttermaker helper a/c with Eliquis), hypertension, hypercholesterolemia, and questionable kidney disease who is seen in follow up for COVID pneumonia acute respiratory failure with hypoxia due to same. Patient states he feels better again today
--- NOTE | 2020-02-16 14:08 | PM.IMPN ---
Progress Note: A&P Assessment and Plan (1) Acute respiratory failure with hypoxia: Code(s): J96.01 - Acute respiratory failure with hypoxia Status: Acute Assessment and Plan: Likely secondary to COVID pneumonia. Now on RA and tolerating this fine today. Supplemental O2 PRN Continue supportive treatment for COVID; Tylenol, Mucinex, albuterol PRN Continue Decadron and Remdesivir for COVID Monitor (2) Pneumonia due to COVID-19 virus: Code(s): U07.1 - COVID-19; J12.89 - Other viral pneumonia Status: Acute Assessment and Plan: CXR shows evidence of pneumonia; likely secondary to COVID-19; tested positive on 02/06. Patient feels well today; appears to have improved clinically. Leukocytosis resolved Decadron initiated in ED on 02/11; continue (day 5) Remdesivir initiated 02/12; continue (day 4/5) Continue supportive care with Tylenol, mucinex, albuterol PRN; IS Monitor respiratory status closely Monitor labs If clinically stable/improved tomorrow, will likely plan for discharge tomorrow and home O2 eval prior to discharge (3) CAD (coronary artery disease): Code(s): I25.10 - Atherosclerotic heart disease of [place] coronary artery without angina pectoris Status: Inactive Assessment and Plan: No chest pain/palpitations. Follows Dr. Worthington and has appointment in 02/2020 Continue home medications Monitor (4) Hypertension: Code(s): I10 - Essential (primary) hypertension Status: Acute Assessment and Plan: BP improved to 120s sys this afternoon Continue home metoprolol Resume Losartan today HCTZ held for now; possibly resume tomorrow if BP improved and kidney function stable (5) A-fib: Code(s): I48.91 - Unspecified atrial fibrillation Status: Acute Assessment and Plan: Patient on amiodarone and Eliquis, as well as metoprolol. Rate appears to be well controlled Will continue amio, Eliquis and metoprolol for now Monitor (6) Chronic anticoagulation: Code(s): Z79.01 - [facility] (current) use of anticoagulants Status: Acute Assessment and Plan: For A. fib, assumed stroke ppx. No signs of acute blood loss Continue Eliquis (7) Hypercholesteremia: Code(s): E78.00 - Pure hypercholesterolemia, unspecified Status: Acute Assessment and Plan: Will hold atorvastatin for now (8) Kidney failure: Code(s): N19 - Unspecified kidney failure Status: Acute Assessment and Plan: Labs obtained from PCP from 11/2019 show Cr of 1.45; assumed baseline. Cr today improved to 0.90; possible acute kidney injury secondary to poor PO intake prior to arrival, although. Monitor kidney function daily Will refrain from IV fluids as to not fluid overload; encouraged PO intake. 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 Patient states he feels better again today; no complaints other than an occasional cough. He is now on RA and walking fine around the room. No other complaints. Tolerating diet. Feels less weak again today. Denies current f/c/s, myalgias/arthralgias, headaches, dizziness, lightheadedness, cp/palpitations, n/v/d/c, abd pain, changes in BMs, dysuria, hematuria, cloudy urine, calf pain/swelling. Review of Systems Review of Systems: All syste
--- NOTE | 2020-02-16 16:22 | PCRCNOTE ---
Window of time for administration has passed. See next scheduled administration.
[2020-02-17] VITALS (10 sets, daily range): BP systolic 124–157; BP diastolic 60–77; PULSE 70–112; RESP 18–20; TEMP 36.3–36.6; O2SAT 92–95
[2020-02-17 06:32] LABS: Basophils Absolute Auto 0.1 K/mm3 (0.0-0.1); Basophils Percent Auto 0.8 % (0.2-1.2); Hematocrit 31.2 % (42.0-52.0); Hemoglobin 10.9 g/dL (14.0-18.0); Immature Granulocyte Absolute 0.78 K/mm3 (0.00-0.031); Immature Granulocyte Percent A 7.9 % (0-0.5); Lymphocytes Absolute Auto 0.72 K/mm3 (0.9-3.2); Lymphocytes Percent Auto 7.3 % (18.3-44.2); Mean Corpuscular HGB Conc 34.9 g/dl (32-36); Mean Corpuscular Hemoglobin 31.4 pg (26-34); Mean Corpuscular Volume 89.9 fl (80-100); Mean Platelet Volume 9.7 fl (7.4-10.4); Monocytes Absolute Auto 1.2 K/mm3 (0.1-0.6); Monocytes Percent Auto 12.2 % (2.6-8.5); Neutrophils Percent Auto 71.8 % (45.5-73.1); Nucleated Red Blood Cells Perc 0.3 % (0.0-0.2); Platelet Count Result 312 k/mm3 (150-375); Red Blood Count 3.47 M/mm3 (4.6-6.20); White Blood Count 9.8 K/mm3 (4.5-10.0)
[2020-02-17 06:46] LABS: Alanine Aminotransferase 84 U/L (4-50); Albumin Level 2.8 g/dL (3.5-5.1); Alkaline Phosphatase 138 U/L (38-126); Anion Gap 5 mmol/L (8-16); Aspartate Amino Transferase 45 U/L (17-59); Bilirubin,Total 0.6 mg/dL (0.2-1.3); Blood Urea Nitrogen 21 mg/dL (9-20); Calcium 8.2 mg/dL (8.4-10.2); Carbon Dioxide 31 mmol/L (22-30); Chloride 97 mmol/L (98-107); Estimated CRCL calculation 74 ml/min; Estimated Glomerular Filt Rate > 60; Glucose 108 mg/dL (75-110); Magnesium 1.8 mg/dL (1.6-2.3); Potassium 4.1 mmol/L (3.4-5.0); Sodium 133 mmol/L (137-145)
[2020-02-17] MEDS: REMDESIVIR 100 MG/NS 250 ML 100 MG/250 ML BAG 250 MG IVPB (08:35)
[2020-02-17] MEDS: ASPIRIN 81 MG CHEWABLE TABLET PO (08:40)
[2020-02-17] MEDS: APIXABAN 5 MG TABLET PO (08:40)
[2020-02-17] MEDS: AMIODARONE HCL 200 MG TABLET BY MOUTH (08:40)
[2020-02-17] MEDS: ASCORBIC ACID 500 MG TABLET 1000 MG PO (08:40)
[2020-02-17] MEDS: METOPROLOL TARTRATE 25 MG TABLET PO (08:41)
[2020-02-17] MEDS: guaiFENesin 12 HR 600 MG TABCR PO (08:41)
[2020-02-17] MEDS: LOSARTAN POTASSIUM 100 MG TABLET PO (08:41)
[2020-02-17] MEDS: DEXAMETHASONE SOD PHOS INJ 4 MG/ML VIAL 6 MG IV PUSH (08:41)
[2020-02-17] MEDS: LORATADINE 10 MG TABLET PO (08:42)
[2020-02-17] MEDS: hydroCHLOROthiazide 25 MG TABLET PO (09:46)
[2020-02-17] MEDS: ALBUTEROL SULFATE (*SP) AEROSOL 1 PUFF 2 PUFF INHALATION ×2 (09:54→12:56)
--- NOTE | 2020-02-17 10:42 | P.DS_ITS ---
DS: Admitting Diagnosis Admitting Diagnosis Admitting Diagnosis: Acute respiratory failure with hypoxia DS: Discharge Diagnosis Discharge Diagnosis (1) Acute respiratory failure with hypoxia: Code(s): J96.01 - Acute respiratory failure with hypoxia Status: Acute Assessment and Plan: Likely secondary to COVID pneumonia. He was placed back on 1L O2 NC yesterday evening and now he has placed himself on RA. Home O2 eval to be done today * Supplemental O2 PRN * Continue supportive treatment for COVID; Tylenol, Mucinex, albuterol PRN * Decadron and Remdesivir for COVID during stay * Home O2 eval today; Per RT, patient does not need supplemental oxygen at home (2) Pneumonia due to COVID-19 virus: Code(s): U07.1 - COVID-19; J12.89 - Other viral pneumonia Status: Acute Assessment and Plan: CXR shows evidence of pneumonia; likely secondary to COVID-19; tested positive on 02/06. Patient feels well today; appears to have improved clinically. Leukocytosis resolved * Decadron initiated in ED on 02/11; continue (day 6) * Remdesivir initiated 02/12; last dose 02/16 (5 doses total) * Continue supportive care with Tylenol, mucinex, albuterol PRN; IS * D/c today after Home O2 eval * F/u with PCP (3) CAD (coronary artery disease): Code(s): I25.10 - Atherosclerotic heart disease of [place] coronary artery without angina pectoris Status: Inactive Assessment and Plan: No chest pain/palpitations. Follows Dr. Worthington and has appointment in 02/2020 * Continue home medications * F/u at scheduled appointment (4) Hypertension: Code(s): I10 - Essential (primary) hypertension Status: Acute Assessment and Plan: BP improved to 150s sys today * Continue home metoprolol and losartan * HCTZ resumed today; continue at discharge (5) A-fib: Code(s): I48.91 - Unspecified atrial fibrillation Status: Acute Assessment and Plan: Patient on amiodarone and Eliquis, as well as metoprolol. Rate appears to be well controlled * Will continue amio, Eliquis and metoprolol * F/u with PCP (6) Chronic anticoagulation: Code(s): Z79.01 - [facility] (current) use of anticoagulants Status: Acute Assessment and Plan: For A. fib, assumed stroke ppx. No signs of acute blood loss * Continue Eliquis (7) Hypercholesteremia: Code(s): E78.00 - Pure hypercholesterolemia, unspecified Status: Acute Assessment and Plan: * Resume atorvastatin at discharge (8) Kidney failure: Code(s): N19 - Unspecified kidney failure Status: Resolved Assessment and Plan: Labs obtained from PCP from 11/2019 show Cr of 1.45; assumed baseline. 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
--- NOTE | 2020-02-17 10:42 | PM.DS ---
DS: Admitting Diagnosis Admitting Diagnosis Admitting Diagnosis: Acute respiratory failure with hypoxia DS: Discharge Diagnosis Discharge Diagnosis (1) Acute respiratory failure with hypoxia: Code(s): J96.01 - Acute respiratory failure with hypoxia Status: Acute Assessment and Plan: Likely secondary to COVID pneumonia. He was placed back on 1L O2 NC yesterday evening and now he has placed himself on RA. Home O2 eval to be done today Supplemental O2 PRN Continue supportive treatment for COVID; Tylenol, Mucinex, albuterol PRN Decadron and Remdesivir for COVID during stay Home O2 eval today; Per RT, patient does not need supplemental oxygen at home (2) Pneumonia due to COVID-19 virus: Code(s): U07.1 - COVID-19; J12.89 - Other viral pneumonia Status: Acute Assessment and Plan: CXR shows evidence of pneumonia; likely secondary to COVID-19; tested positive on 02/06. Patient feels well today; appears to have improved clinically. Leukocytosis resolved Decadron initiated in ED on 02/11; continue (day 6) Remdesivir initiated 02/12; last dose 02/16 (5 doses total) Continue supportive care with Tylenol, mucinex, albuterol PRN; IS D/c today after Home O2 eval F/u with PCP (3) CAD (coronary artery disease): Code(s): I25.10 - Atherosclerotic heart disease of [place] coronary artery without angina pectoris Status: Inactive Assessment and Plan: No chest pain/palpitations. Follows Dr. Worthington and has appointment in 02/2020 Continue home medications F/u at scheduled appointment (4) Hypertension: Code(s): I10 - Essential (primary) hypertension Status: Acute Assessment and Plan: BP improved to 150s sys today Continue home metoprolol and losartan HCTZ resumed today; continue at discharge (5) A-fib: Code(s): I48.91 - Unspecified atrial fibrillation Status: Acute Assessment and Plan: Patient on amiodarone and Eliquis, as well as metoprolol. Rate appears to be well controlled Will continue amio, Eliquis and metoprolol F/u with PCP (6) Chronic anticoagulation: Code(s): Z79.01 - [facility] (current) use of anticoagulants Status: Acute Assessment and Plan: For A. fib, assumed stroke ppx. No signs of acute blood loss Continue Eliquis (7) Hypercholesteremia: Code(s): E78.00 - Pure hypercholesterolemia, unspecified Status: Acute Assessment and Plan: Resume atorvastatin at discharge (8) Kidney failure: Code(s): N19 - Unspecified kidney failure Status: Resolved Assessment and Plan: Labs obtained from PCP from 11/2019 show Cr of 1.45; assumed baseline. Cr today is 0.90; possible acute kidney injury secondary to poor PO intake prior to arrival F/u with PCP DS: Summary Hospital Course Reason for hospitalization: COVID pneumonia; acute respiratory failure with hypoxia due to same Hospital Course: Date of arrival: 02/12/20 Date of discharge: 02/17/20 Patient is a 69 yo M with history of past [place] s/p CABG, A. fib (on [facility] a/c with Eliquis), hypertension, hypercholesterolemia, and questionable kidney disease who presented to the ED on 02/11 from home by direction from his PCP after he was found to have a pulse oximeter reading of low 80s on room air at home. While in the ED, CXR showed patchy bilateral lung disease consistent with pneumonia vs pulmonary edema, he had mild leukocytosis, and was found to be hypoxic on RA and was placed on supplemental O2. COVID pneumonia suspected and swabbed in ED (positive). He was started on Decadron in ED.. Patient admitted under this setting. Please see H&P fo
== END 2020-02-17 15:16 | disposition home or self-care (01) | DRG 177 ==
LOC: ANHED 21:11 → ANH3MEDSUR 02-13 00:40
PROVIDERS: Admitting Provider Family Medicine; Emergency Provider Emergency Medicine; PCP Family Medicine; Visit Provider Physician Assistant
DX: U07.1 COVID-19 (principal); J96.01 Acute respiratory failure with hypoxia; J12.89 Other viral pneumonia; I25.10 Atherosclerotic heart disease of native coronary artery without angina pectoris; I10 Essential (primary) hypertension; N19 Unspecified kidney failure; E78.00 Pure hypercholesterolemia, unspecified; I48.91 Unspecified atrial fibrillation; I25.2 Old myocardial infarction; Z79.01 Long term (current) use of anticoagulants; Z79.82 Long term (current) use of aspirin; Z87.891 Personal history of nicotine dependence; Z95.1 Presence of aortocoronary bypass graft
CPT/HCPCS: 36415; 71045; 80048; 80053; 80076; 82728; 83615; 83735; 85025; 86140; 93005; 94618; 94640; 96374; 99291; A9270; J1100; J7120

== ENCOUNTER 2020-10-27 01:10 | Day surgery (SDC) | payer OTHER, SELFPAY ==
[2020-10-09 14:04] VITALS: BMI 27.8
[2020-10-27 06:05] VITALS: BP 122/84; PULSE 73; RESP 18; TEMP 35.7; O2SAT 99; BMI 27.1
--- NOTE | 2020-10-27 06:41 | WPDANESEPPF ---
Anes - Initial Pre Proc Eval Procedure: Operation Date: 10/27/20 07:30 Proposed Procedures p Screening Colonoscopy - Marck Hearn MD Date/Time: 10/27/20 06:41 Surgeon: Marck Hearn MD Pre Op Diagnosis: hx of colon polyps, neoplasm screening Patient Data Age: 70 Gender: M Height: 1.83 m Weight: 93 kg Allergies Allergy/AdvReac Type Severity Reaction Status Date / Time No Known Allergies Allergy Verified 10/27/20 06:18 Home Medications Medication Instructions Recorded Confirmed Type Allergy Relief (loratadine) 10 mg PO DAILY 02/12/20 10/27/20 History Eliquis 5 mg PO BID 02/12/20 10/27/20 History ascorbic acid (vitamin C) 1,000 mg PO DAILY 02/12/20 10/27/20 History aspirin 81 mg PO DAILY 02/12/20 10/27/20 History atorvastatin 80 mg PO DAILY 02/12/20 10/27/20 History hydrochlorothiazide 25 mg PO DAILY 02/12/20 10/27/20 History losartan 100 mg PO DAILY 02/12/20 10/27/20 History metoprolol tartrate 25 mg PO BID 02/12/20 10/27/20 History albuterol sulfate [Proventil HFA] 2 puff INHALATION Q6H PRN #6.7 g 02/17/20 10/27/20 Rx Patient hx anesthesia problems: none Family hx anesthesia problems: none PMFSH Past Medical History Medical History A-fib CAD (coronary artery disease) Chronic anticoagulation Hypercholesteremia Hypertension Myocardial infarction Surgical History Surgical History History of appendectomy History of back surgery lumbar disc repair History of tonsillectomy Hx of CABG Family History Family History Father Heart disease Social History Social History Social History: Patient states he lives at home with his , Nadege, and his mother in law. He is a former 30 pack-year smoker quitting several years ago. His PCP is Dr. Ware. He wishes to be a Full Code. He lists his as his surrogate MDM Smoking status: Former smoker Alcohol intake: never Drinks per week: 2 Alcohol use details: OCCATIONALLY Substance use: never Living arrangements: with family Gender identity (if verbalized by the patient): Male Spiritual care concerns: No Anes - Eval Final PreProcedure Day of Procedure 10/27/20 06:41 Patient weight: overweight Heart: regular rate and rhythm Lungs: clear to auscultation Airway: Mallampati scale class II Neurological: alert and oriented Last oral intake: >/= 8 hours ASA classification: III Emergent: no Anesthetic plan: proceed Anesthesia type and monitoring: general GIVS and standard monitoring Informed Consent: The patient's anesthetic plan and its attendant risks and benefits were discussed with the patient/family/POA. Questions were solicited and answers provided to the satisfaction of the patient/family/POA.
[2020-10-27] MEDS: LACTATED RINGERS 1,000 ML 150 ML IV CONT (06:45)
--- NOTE | 2020-10-27 07:07 | PM.HPGS ---
History of Present Illness History of Present Illness Consent: Risks, benefits, and alternatives have been discussed and questions answered. Patient agrees to proceed with procedure. Chief complaint: hx of colon polyps, neoplasm screening Narrative: Warren Don is a 70 year old male Here for colon cancer screening. He has had multiple polyps removed in the past Review of Systems Review of Systems: All systems reviewed & are unremarkable except as noted in HPI and below PMFSH Past Medical History Medical History A-fib CAD (coronary artery disease) Chronic anticoagulation Hypercholesteremia Hypertension Myocardial infarction Surgical History Surgical History History of appendectomy History of back surgery lumbar disc repair History of tonsillectomy Hx of CABG Family History Family History Father Heart disease Social History Social History Social History: Patient states he lives at home with his , Nadege, and his mother in law. He is a former 30 pack-year smoker quitting several years ago. His PCP is Dr. Ware. He wishes to be a Full Code. He lists his as his surrogate MDM Smoking status: Former smoker Alcohol intake: never Drinks per week: 2 Alcohol use details: OCCATIONALLY Substance use: never Living arrangements: with family Gender identity (if verbalized by the patient): Male Spiritual care concerns: No Meds Home Medications and Allergies Home Medications Medication Instructions Recorded Confirmed Type Allergy Relief (loratadine) 10 mg PO DAILY 02/12/20 10/27/20 History Eliquis 5 mg PO BID 02/12/20 10/27/20 History ascorbic acid (vitamin C) 1,000 mg PO DAILY 02/12/20 10/27/20 History aspirin 81 mg PO DAILY 02/12/20 10/27/20 History atorvastatin 80 mg PO DAILY 02/12/20 10/27/20 History hydrochlorothiazide 25 mg PO DAILY 02/12/20 10/27/20 History losartan 100 mg PO DAILY 02/12/20 10/27/20 History metoprolol tartrate 25 mg PO BID 11/17/20 08/02/21 History albuterol sulfate [Proventil HFA] 2 puff INHALATION Q6H PRN #6.7 g 02/17/20 10/27/20 Rx Allergies Allergy/AdvReac Type Severity Reaction Status Date / Time No Known Allergies Allergy Verified 10/27/20 06:18 Vital Signs Vital Signs - 24 hr 10/27/20 06:05 Temperature 35.7 C L Pulse Rate 73 Respiratory Rate 18 Blood Pressure 122/84 Pulse Oximetry 99 Exam Resp: Auscultation: clear to auscultation bilaterally Cardio: Rate: regular rate Rhythm: regular rhythm GI: GI Palp: Yes Soft to palpation and No Tenderness to palpation present (GI) Assessment and Plan Assessment and plan (1) Colon cancer screening: Code(s): Z12.11 - Encounter for screening for malignant neoplasm of colon Status: Acute Assessment and Plan: Colonoscopy with possible biopsy or polypectomy or cautery or injection of substances.
[2020-10-27 07:59] VITALS: BP 122/84; PULSE 73; RESP 16; O2SAT 98
[2020-10-27 08:09] VITALS: BP 114/62; PULSE 73; RESP 18; O2SAT 98
[2020-10-27 08:19] VITALS: BP 128/64; PULSE 73; RESP 18; O2SAT 98
== END 2020-10-27 08:40 | disposition home or self-care (01) ==
PROVIDERS: PCP Family Medicine; Visit Provider Internal Medicine Gastroenterology
PROC: 0DJD8ZZ Inspection of Lower Intestinal Tract, Via Natural or Artificial Opening Endoscopic (ICD-10-PCS; CPT 45378; principal; 2020-10-27 07:30)
DX: Z12.11 Encounter for screening for malignant neoplasm of colon (principal); K63.5 Polyp of colon; K57.30 Diverticulosis of large intestine without perforation or abscess without bleeding; I48.91 Unspecified atrial fibrillation; I25.10 Atherosclerotic heart disease of native coronary artery without angina pectoris; Z79.01 Long term (current) use of anticoagulants; E78.00 Pure hypercholesterolemia, unspecified; I10 Essential (primary) hypertension; I25.2 Old myocardial infarction; Z87.891 Personal history of nicotine dependence; Z79.82 Long term (current) use of aspirin; Z79.51 Long term (current) use of inhaled steroids; Z95.1 Presence of aortocoronary bypass graft
CPT/HCPCS: 45385; 45381; 88305; J2704; J7120